=== PATIENT | male | born 1960 | race African-American/Black ===

== ENCOUNTER 2020-01-28 11:26 | Emergency (ER) | payer OTHER ==
[~2020-01-28] VITALS: Ht 190.5 cm; Wt 90.7 kg
[2020-01-28 14:00] LABS: ABSOLUTE NEUTROPHILS 4.7 thou/uL (1.4-8.2); BASOPHILS 0.8 % (0.0-2.0); EOSINOPHILS 0.3 % (0.0-3.0); HEMATOCRIT 29.9 % (42.0-52.0); HEMOGLOBIN 9.2 gm/dL (14.0-18.0); LYMPHOCYTES 15.4 % (24.0-44.0); MCH 23.3 pg (26.0-34.0); MCHC 30.7 g/dL (28.0-37.0); MCV 75.8 fL (80.0-100.0); PLATELET COUNT 260 thou/uL (150-400); POLYS 74.5 % (36.0-66.0); RBC 3.94 mil/uL (4.50-6.00); RDW 14.7 % (10.5-14.5); WBC 6.3 thou/uL (4.0-11.0)
[2020-01-28] MEDS ORDERED: ATENOLOL-CHLOR1 EACH PO (14:00)
[2020-01-28] MEDS ORDERED: NORVASC 2.5 MG2.5 M1 PO (14:01)
[2020-01-28] MEDS ORDERED: HUMALOG KW100 UNIT/1 SUBQ (14:02)
[2020-01-28] MEDS ORDERED: LANTUS SOL100 UNIT/1 SUBQ (14:02)
[2020-01-28 14:10] LABS: ANION GAP 7 mmol/L (7-16); BUN 25 mg/dL (7-18); CALCIUM 9.1 mg/dL (8.5-10.1); CHLORIDE 109 mmol/L (98-107); CO2 27 mmol/L (21-32); CREATININE 1.6 mg/dL (0.7-1.3); GLUCOSE 165 mg/dL (74-106); POTASSIUM 4.9 mmol/L (3.5-5.1); SODIUM 143 mmol/L (136-145)
[2020-01-28 14:20] LABS: TROPONIN-I <0.06 ng/mL (<0.06)
[2020-01-28 15:41] LABS: URINE BILIRUBIN NEGATIVE (Negative); URINE BLOOD TRACE (Negative); URINE CLARITY CLEAR; URINE COLOR YELLOW; URINE GLUCOSE-RANDOM* NEGATIVE (Negative); URINE KETONES NEGATIVE (Negative); URINE LEUKOCYTES-REFLEX NEGATIVE (Negative); URINE NITRITE-REFLEX NEGATIVE (Negative); URINE PROTEIN (DIPSTICK) 2+ (Negative); URINE SPECIFIC GRAVITY >= 1.030 (1.005-1.035); URINE UROBILINOGEN 0.2 E.U./dl (0.2-1.0)
[2020-01-28 15:50] LABS: BACTERIA-REFLEX None Seen /HPF (None Seen); CASTS None Seen /LPF (None Seen); CRYSTALS None Seen /LPF (None Seen); SQUAMOUS None Seen /LPF (0-3); URINE RBC 0-2 Rare /HPF (0-2); URINE WBC-REFLEX None Seen /HPF (0-5)
--- NOTE | 2020-01-28 16:33 | EKG ---
[facility] [place] [address] ELECTROCARDIOGRAM REPORT Name: YURIDIA BURGER Room #: REG M.#: [id number] Admission: 01/28/20 Attend Phys: Discharge: Date of : 58 Report #: [id number] THIS REPORT FOR: cc: FAM - Family physician unknown FAM - Family physician unknown Ross Engel MD [facility] ~ THIS REPORT FOR: //name// [facility] ED Test Date: 2020-01-28 Test Time: 12:31:38 Pat Name: YURIDIA BURGER Department: Room: Gender: M Lpn Per Diem: lewis : 1960 Requested By: Esa Camara Order Number: [id number] MD: Ross Engel Measurements Intervals [place] Rate: 83 P: 46 WI: 206 QRS: 1 QRSD: 147 T: 46 QT: 384 QTc: 452 Interpretive Statements Sinus rhythm Borderline prolonged WI interval Left atrial enlargement Anterior Q waves, possibly due to LVH No previous ECG available for comparison Electronically Signed On 01-28-2020 16:32:21 HEAD CAGER by Ross Engel [email or web address] <ELECTRONICALLY SIGNED> By: Ross Engel MD, FAC 01/28/20 1632 1231 1231 Ross Engel MD, [facility] /EPI
[2020-01-28 16:43] VITALS: BP 158/92
== END 2020-01-28 16:40 | disposition home or self-care (01) ==
LOC: ER 11:26
PROVIDERS: Emergency Medicine
DX: S70.01XA Contusion of right hip, initial encounter (principal); E11.649 Type 2 diabetes mellitus with hypoglycemia without coma; R41.0 Disorientation, unspecified; Z79.899 Other long term (current) drug therapy; Z79.4 Long term (current) use of insulin; Z88.0 Allergy status to penicillin; Z96.641 Presence of right artificial hip joint; W19.XXXA Unspecified fall, initial encounter; Y93.89 Activity, other specified; Y92.003 Bedroom of unspecified non-institutional (private) residence as the place of occurrence of the external cause; Y99.8 Other external cause status